=== PATIENT | female | born 1955 | race Caucasian/White ===

== ENCOUNTER 2021-12-29 02:19 | Inpatient (IN) ==
[2021-12-29 03:59] LABS: Basophils % 0.2 % (0.0-0.8); Eosinophils % 0.2 % (0.00-10.9); Hematocrit 26.6 VOL% (35.7-47.0); Hemoglobin 8.8 GM/DL (12.0-16.0); Immature Granulocytes % 0.6 %; Immature Granulocytes Absolute 0.07 #; Lymphocytes # 1.2 10*3/uL (1.4-4.0); Lymphocytes % 10.7 % (21.3-54.2); Mean Corpuscular HGB Conc 33.1 GM/DL (32-36); Mean Corpuscular Volume 92.7 FL (87-102); Mean Platelet Volume 12.4 FL (9.6-12.0); Monocytes % 7.1 % (1.7-12.7); Neutrophils % 81.2 % (38.7-73.9); Platelet Count 335 T/CUMM (130-400); Red Blood Count 2.87 MC/CUMM (3.8-5.5); Red Cell Distribution Width 13.2 % (9.3-17.3); White Blood Count 11.5 T/CUMM (4-12)
[2021-12-29 04:14] LABS: INR 1.3; PT Patient Result 14.6 SECS (10.5-12.0)
[2021-12-29 04:19] LABS: Albumin 2.8 G/DL (3.4-5.0); Bilirubin,Total 0.4 MG/DL (0.20-1.00); Calcium 8.8 MG/DL (8.5-10.1); Osmolality,Calculated 292.4 MOS/KG (273-304); Potassium 5.4 MMOL/L (3.5-5.1); Total Protein 6.5 G/DL (6.4-8.2)
[2021-12-29] MEDS ORDERED: hydrALAZINE 20 MG/1 ML VIAL IV PRN (08:19)
[2021-12-29] MEDS ORDERED: DEXTROSE 50% 25 GM/50 ML VIAL IV PRN (08:19)
[2021-12-29] MEDS ORDERED: DEXTROSE 10% 25 GM/250 ML BAG IV PRN (08:19)
[2021-12-29] MEDS ORDERED: ACETAMINOPHEN 325 MG TABLET PO PRN (08:19)
[2021-12-29] MEDS ORDERED: GLUCAGON 1 MG VIAL IM PRN ×2 (08:19)
[2021-12-29] MEDS ORDERED: ENOXAPARIN 40 MG/0.4 ML SYRINGE SUBCUT SCH (08:30)
[2021-12-29] MEDS ORDERED: SODIUM ZIRCONIUM CYCLOSILICATE 10 GM PACK PO SCH (09:00)
[2021-12-29] MEDS ORDERED: METOPROLOL SUCCINATE XL 25 MG TABLET PO SCH (09:00)
[2021-12-29 09:05] LABS: Bacteria,Urine Occasional /HPF (Few); Hyaline Casts,Urine 5 /LPF (0-3); Mucus,Urine Occasional /LPF (Occasional); Protein,Urine 100 mg/dL (Negative); RBC,Urine 1 /HPF (0-4); Urine Appearance Clear (Clear); Urine Color Yellow (Yellow); Urine Specific Gravity > 1.030 (1.001-1.035)
[2021-12-29 09:06] LABS: Bilirubin,Urine Small mg/dL (Negative); Blood, Urine Negative (Negative); Glucose,Urine (UA) Negative (Negative); Ketones,Urine Trace mg/dL (Negative); Nitrite,Urine Negative (Negative); Urine Urobilinogen 0.2 eU/dL (<2.0)
[2021-12-29] MEDS: SODIUM CHLORIDE 0.9% 1,000 ML IV SCH ×3 (09:23→20:50)
[2021-12-29] MEDS: PANTOPRAZOLE 40 MG TABLET PO SCH (09:24)
[2021-12-29] MEDS: CLOPIDOGREL 75 MG TABLET PO SCH (09:24)
[2021-12-29] MEDS: ASPIRIN EC 81 MG TABLET PO SCH (09:24)
[2021-12-29] MEDS: HEPARIN 5,000 UNIT/1 ML VIAL SUBCUT SCH ×2 (09:25→20:48)
[2021-12-29] MEDS: INSULIN GLARGINE 100 UNIT/ML SUBCUT SCH (09:28)
[2021-12-29 10:24] LABS: % Iron Saturation 17.3 % (18-50); Ferritin 932.6 ng/mL (8-252)
[2021-12-29 10:59] LABS: Hepatitis B Core IgM Quant 0.11 Index; Hepatitis B Surface Ag Quant < 0.10 Index; Hepatitis B Surface Ag Result Non-Reactive (NonReactive); Hepatitis C Virus Ab Quant 0.04 Index; Hepatitis C Virus Ab Result Non-Reactive (NonReactive)
[2021-12-29] MEDS: INSULIN LISPRO 100 UNIT/ML SUBCUT SCH ×3 (12:15→20:49)
[2021-12-29 14:42] LABS: Calcium 8.2 MG/DL (8.5-10.1); Osmolality,Calculated 298.2 MOS/KG (273-304); Potassium 4.9 MMOL/L (3.5-5.1)
[2021-12-29] MEDS: ONDANSETRON 4 MG/2 ML VIAL IV PRN (17:49)
[2021-12-29] MEDS: ATORVASTATIN 40 MG TABLET PO SCH (20:49)
[2021-12-29] MEDS: SODIUM ZIRCONIUM CYCLOSILICATE 10 GM PACK PO SCH (20:49)
[2021-12-30 00:50] LABS: Basophils % 0.2 % (0.0-0.8); Eosinophils % 0.1 % (0.00-10.9); Hematocrit 26.7 VOL% (35.7-47.0); Hemoglobin 8.8 GM/DL (12.0-16.0); Immature Granulocytes % 0.4 %; Immature Granulocytes Absolute 0.04 #; Lymphocytes # 1.3 10*3/uL (1.4-4.0); Lymphocytes % 13.3 % (21.3-54.2); Mean Corpuscular Volume 91.8 FL (87-102); Mean Platelet Volume 11.7 FL (9.6-12.0); Platelet Count 319 T/CUMM (130-400); Red Blood Count 2.91 MC/CUMM (3.8-5.5); Red Cell Distribution Width 13.3 % (9.3-17.3); White Blood Count 9.7 T/CUMM (4-12)
[2021-12-30 01:20] LABS: Alanine Aminotransferase 195 U/L (13-56); Albumin 2.3 G/DL (3.4-5.0); Alkaline Phosphatase 100 U/L (45-117); Aspartate Amino Transferase 243 U/L (0-37); Bilirubin,Total < 0.39 MG/DL (0.20-1.00); Blood Urea Nitrogen 110 MG/DL (7-18); Calcium 8.1 MG/DL (8.5-10.1); Carbon Dioxide 19 MMOL/L (21-32); Estimated Glom Filtration Rate 5 ML/MIN; Glucose 89 MG/DL (74-106); HDL Cholesterol 40 MG/DL (40-60); Osmolality,Calculated 290.1 MOS/KG (273-304); Potassium 5.1 MMOL/L (3.5-5.1); Risk Ratio 1.98; Sodium 128 MMOL/L (136-145); Total Protein 6.1 G/DL (6.4-8.2); Triglycerides 58 MG/DL (2-150); VLDL Cholesterol 11.6 MG/DL
[2021-12-30] MEDS: SODIUM CHLORIDE 0.9% 1,000 ML IV SCH ×3 (04:23→19:03)
[2021-12-30] MEDS: ONDANSETRON 4 MG/2 ML VIAL IV PRN (04:48)
[2021-12-30] MEDS ORDERED: HYDROCORTISONE 100 MG VIAL IV ONE (05:10)
[2021-12-30] MEDS ORDERED: DOPamine 800 MG/250 ML PREMIX IV PRN (05:13)
[2021-12-30 06:41] LABS: Basophils % 0.2 % (0.0-0.8); Eosinophils % 0.1 % (0.00-10.9); Hematocrit 28.1 VOL% (35.7-47.0); Hemoglobin 9.3 GM/DL (12.0-16.0); Immature Granulocytes % 0.5 %; Immature Granulocytes Absolute 0.06 #; Lymphocytes # 1.1 10*3/uL (1.4-4.0); Mean Corpuscular HGB Conc 33.1 GM/DL (32-36); Mean Platelet Volume 11.9 FL (9.6-12.0); Monocytes % 4.9 % (1.7-12.7); Neutrophils % 84.3 % (38.7-73.9); Platelet Count 320 T/CUMM (130-400); Red Blood Count 3.02 MC/CUMM (3.8-5.5); Red Cell Distribution Width 13.5 % (9.3-17.3); White Blood Count 11.4 T/CUMM (4-12)
[2021-12-30 06:53] LABS: Osmolality,Calculated 296.9 MOS/KG (273-304); Potassium 5.3 MMOL/L (3.5-5.1)
[2021-12-30] MEDS: INSULIN GLARGINE 100 UNIT/ML SUBCUT SCH (09:03)
[2021-12-30] MEDS: CLOPIDOGREL 75 MG TABLET PO SCH (09:04)
[2021-12-30] MEDS: PANTOPRAZOLE 40 MG TABLET PO SCH (09:04)
[2021-12-30] MEDS: HEPARIN 5,000 UNIT/1 ML VIAL SUBCUT SCH ×2 (09:04→21:15)
[2021-12-30] MEDS: INSULIN LISPRO 100 UNIT/ML SUBCUT SCH ×4 (09:06→21:44)
[2021-12-30] MEDS: ASPIRIN EC 81 MG TABLET PO SCH (09:07)
[2021-12-30] MEDS ORDERED: MAGNESIUM HYDROXIDE SUSP 30 ML UDCUP PO ONE (12:13)
[2021-12-30 14:59] LABS: Osmolality,Calculated 298.9 MOS/KG (273-304); Potassium 5.2 MMOL/L (3.5-5.1)
[2021-12-30] MEDS: POLYETHYLENE GLYCOL POWDER 17 GM PACK PO SCH (19:02)
[2021-12-30] MEDS: SODIUM ZIRCONIUM CYCLOSILICATE 10 GM PACK PO SCH (21:14)
[2021-12-30] MEDS: DOCUSATE SODIUM 100 MG CAPSULE PO SCH (21:14)
[2021-12-30] MEDS: ATORVASTATIN 40 MG TABLET PO SCH (21:14)
[2021-12-31] MEDS: SODIUM CHLORIDE 0.9% 1,000 ML IV SCH ×5 (01:59→23:52)
[2021-12-31 04:00] LABS: Basophils % 0.1 % (0.0-0.8); Eosinophils % 0.1 % (0.00-10.9); Hemoglobin 8.5 GM/DL (12.0-16.0); Immature Granulocytes % 0.5 %; Immature Granulocytes Absolute 0.05 #; Lymphocytes # 1.2 10*3/uL (1.4-4.0); Lymphocytes % 12.5 % (21.3-54.2); Mean Corpuscular HGB Conc 32.7 GM/DL (32-36); Mean Corpuscular Volume 93.9 FL (87-102); Mean Platelet Volume 12.1 FL (9.6-12.0); Monocytes % 6.8 % (1.7-12.7); Platelet Count 324 T/CUMM (130-400); Red Blood Count 2.77 MC/CUMM (3.8-5.5); Red Cell Distribution Width 13.5 % (9.3-17.3); White Blood Count 9.8 T/CUMM (4-12)
[2021-12-31 04:36] LABS: Alanine Aminotransferase 261 U/L (13-56); Albumin 2.3 G/DL (3.4-5.0); Alkaline Phosphatase 115 U/L (45-117); Aspartate Amino Transferase 279 U/L (0-37); Bilirubin,Total < 0.39 MG/DL (0.20-1.00); Blood Urea Nitrogen 116 MG/DL (7-18); Carbon Dioxide 17 MMOL/L (21-32); Estimated Glom Filtration Rate 5 ML/MIN; Glucose 154 MG/DL (74-106); Osmolality,Calculated 301.7 MOS/KG (273-304); Potassium 5.3 MMOL/L (3.5-5.1); Sodium 131 MMOL/L (136-145)
[2021-12-31] MEDS: PANTOPRAZOLE 40 MG TABLET PO SCH (08:07)
[2021-12-31] MEDS: DOCUSATE SODIUM 100 MG CAPSULE PO SCH ×2 (08:07→21:39)
[2021-12-31] MEDS: ASPIRIN EC 81 MG TABLET PO SCH (08:07)
[2021-12-31] MEDS: CLOPIDOGREL 75 MG TABLET PO SCH (08:07)
[2021-12-31] MEDS: POLYETHYLENE GLYCOL POWDER 17 GM PACK PO SCH (08:07)
[2021-12-31] MEDS: INSULIN LISPRO 100 UNIT/ML SUBCUT SCH ×4 (08:24→21:39)
[2021-12-31] MEDS: HEPARIN 5,000 UNIT/1 ML VIAL SUBCUT SCH ×2 (08:24→21:40)
[2021-12-31] MEDS: INSULIN GLARGINE 100 UNIT/ML SUBCUT SCH (08:25)
[2021-12-31] MEDS ORDERED: LACTULOSE 20 GM/30 ML UDCUP PO PRN (11:55)
[2021-12-31] MEDS: SODIUM ZIRCONIUM CYCLOSILICATE 10 GM PACK PO SCH (21:40)
[2022-01-01] MEDS: ONDANSETRON 4 MG/2 ML VIAL IV PRN (00:51)
[2022-01-01 01:34] LABS: Calcium 8.1 MG/DL (8.5-10.1); Osmolality,Calculated 294.7 MOS/KG (273-304); Potassium 4.9 MMOL/L (3.5-5.1)
[2022-01-01 01:47] LABS: CKMB % 6.1 %
[2022-01-01 01:49] LABS: High Sensitive Troponin I* 27264.9 ng/L (0-54)
[2022-01-01 04:39] LABS: Basophils % 0.1 % (0.0-0.8); Eosinophils % 0.1 % (0.00-10.9); Hematocrit 27.8 VOL% (35.7-47.0); Hemoglobin 9.1 GM/DL (12.0-16.0); Immature Granulocytes % 0.6 %; Lymphocytes # 0.7 10*3/uL (1.4-4.0); Mean Corpuscular HGB Conc 32.7 GM/DL (32-36); Mean Corpuscular Volume 94.6 FL (87-102); Mean Platelet Volume 11.5 FL (9.6-12.0); Monocytes % 4.8 % (1.7-12.7); NRBC # 0.02 10*3/uL; Neutrophils % 90.4 % (38.7-73.9); Platelet Count 328 T/CUMM (130-400); Red Blood Count 2.94 MC/CUMM (3.8-5.5); Red Cell Distribution Width 14.1 % (9.3-17.3); White Blood Count 17.4 T/CUMM (4-12)
[2022-01-01 04:45] LABS: Calcium 8.1 MG/DL (8.5-10.1); Osmolality,Calculated 295.8 MOS/KG (273-304); Potassium 4.8 MMOL/L (3.5-5.1)
[2022-01-01 05:03] LABS: Band Neutrophils 1 % (0-10); Lymphocytes 3 % (20-55); Microcytosis Slight; Segmented Neutrophils 91 % (50-85); Total Cells Counted 100
[2022-01-01 05:04] LABS: Acanthocytes Few
[2022-01-01] MEDS: INSULIN LISPRO 100 UNIT/ML SUBCUT SCH ×4 (07:25→20:02)
[2022-01-01] MEDS: POLYETHYLENE GLYCOL POWDER 17 GM PACK PO SCH (08:33)
[2022-01-01] MEDS: ASPIRIN EC 81 MG TABLET PO SCH (08:33)
[2022-01-01] MEDS: CLOPIDOGREL 75 MG TABLET PO SCH (08:33)
[2022-01-01] MEDS: DOCUSATE SODIUM 100 MG CAPSULE PO SCH ×2 (08:33→20:52)
[2022-01-01] MEDS: PANTOPRAZOLE 40 MG TABLET PO SCH (08:33)
[2022-01-01] MEDS: INSULIN GLARGINE 100 UNIT/ML SUBCUT SCH (08:33)
[2022-01-01] MEDS: HEPARIN 5,000 UNIT/1 ML VIAL SUBCUT SCH ×2 (08:33→20:53)
[2022-01-01] MEDS: SODIUM CHLORIDE 0.9% 1,000 ML IV SCH (15:49)
[2022-01-01] MEDS: SODIUM ZIRCONIUM CYCLOSILICATE 10 GM PACK PO SCH (20:58)
[2022-01-02 03:33] LABS: Basophils % 0.1 % (0.0-0.8); Eosinophils # 0.2 10*3/uL (0.0-0.87); Hematocrit 26.3 VOL% (35.7-47.0); Hemoglobin 8.9 GM/DL (12.0-16.0); Immature Granulocytes % 0.6 %; Immature Granulocytes Absolute 0.09 #; Lymphocytes # 0.4 10*3/uL (1.4-4.0); Lymphocytes % 2.9 % (21.3-54.2); Mean Corpuscular HGB Conc 33.8 GM/DL (32-36); Mean Corpuscular Volume 92.6 FL (87-102); Mean Platelet Volume 11.1 FL (9.6-12.0); Monocytes % 4.5 % (1.7-12.7); NRBC # 0.02 10*3/uL; Neutrophils % 90.9 % (38.7-73.9); Platelet Count 304 T/CUMM (130-400); Red Blood Count 2.84 MC/CUMM (3.8-5.5); White Blood Count 14.7 T/CUMM (4-12)
[2022-01-02 03:55] LABS: Eosinophils 2 % (0-10); Lymphocytes 6 % (20-55); Segmented Neutrophils 91 % (50-85); Total Cells Counted 100
[2022-01-02 03:56] LABS: Burr Cells 1+; Platelet Estimate Adequate
[2022-01-02 04:06] LABS: Calcium 7.9 MG/DL (8.5-10.1); Osmolality,Calculated 291.4 MOS/KG (273-304); Potassium 4.2 MMOL/L (3.5-5.1)
[2022-01-02] MEDS: SODIUM CHLORIDE 0.9% 1,000 ML IV SCH ×2 (06:01→10:54)
[2022-01-02] MEDS: INSULIN LISPRO 100 UNIT/ML SUBCUT SCH ×4 (08:34→21:38)
[2022-01-02] MEDS: MORPHINE 2 MG/1 ML SYRINGE IV PRN ×2 (08:42→18:28)
[2022-01-02] MEDS: INSULIN GLARGINE 100 UNIT/ML SUBCUT SCH (09:36)
[2022-01-02] MEDS: DOCUSATE SODIUM 100 MG CAPSULE PO SCH ×2 (09:36→21:37)
[2022-01-02] MEDS: PANTOPRAZOLE 40 MG TABLET PO SCH (09:36)
[2022-01-02] MEDS: ASPIRIN EC 81 MG TABLET PO SCH (09:36)
[2022-01-02] MEDS: CLOPIDOGREL 75 MG TABLET PO SCH (09:36)
[2022-01-02] MEDS: POLYETHYLENE GLYCOL POWDER 17 GM PACK PO SCH (09:38)
[2022-01-02] MEDS: HEPARIN 5,000 UNIT/1 ML VIAL SUBCUT SCH ×2 (09:38→21:37)
[2022-01-02 16:18] VITALS: BP 125/93
[2022-01-02] MEDS: SODIUM ZIRCONIUM CYCLOSILICATE 10 GM PACK PO SCH (21:38)
[2022-01-03 04:45] LABS: Basophils % 0.1 % (0.0-0.8); Eosinophils # 0.4 10*3/uL (0.0-0.87); Eosinophils % 3.2 % (0.00-10.9); Hematocrit 27.4 VOL% (35.7-47.0); Immature Granulocytes % 1.7 %; Immature Granulocytes Absolute 0.23 #; Lymphocytes # 0.7 10*3/uL (1.4-4.0); Lymphocytes % 5.2 % (21.3-54.2); Mean Corpuscular HGB Conc 32.8 GM/DL (32-36); Mean Corpuscular Volume 93.2 FL (87-102); Mean Platelet Volume 10.8 FL (9.6-12.0); Monocytes % 6.4 % (1.7-12.7); NRBC # 0.04 10*3/uL; Neutrophils % 83.4 % (38.7-73.9); Platelet Count 298 T/CUMM (130-400); Red Blood Count 2.94 MC/CUMM (3.8-5.5); Red Cell Distribution Width 14.2 % (9.3-17.3); White Blood Count 13.8 T/CUMM (4-12)
[2022-01-03 05:02] LABS: Calcium 7.9 MG/DL (8.5-10.1); Osmolality,Calculated 286.5 MOS/KG (273-304)
[2022-01-03 05:10] LABS: Albumin 1.7 G/DL (3.4-5.0); Bilirubin,Direct 0.21 MG/DL (0.0-0.20); Bilirubin,Total 1.2 MG/DL (0.20-1.00); Total Protein 5.7 G/DL (6.4-8.2)
[2022-01-03] MEDS: INSULIN LISPRO 100 UNIT/ML SUBCUT SCH ×4 (08:31→20:25)
[2022-01-03] MEDS: ASPIRIN EC 81 MG TABLET PO SCH (08:42)
[2022-01-03] MEDS: DOCUSATE SODIUM 100 MG CAPSULE PO SCH ×2 (08:42→22:15)
[2022-01-03] MEDS: PANTOPRAZOLE 40 MG TABLET PO SCH (08:42)
[2022-01-03] MEDS: INSULIN GLARGINE 100 UNIT/ML SUBCUT SCH (08:42)
[2022-01-03] MEDS: CLOPIDOGREL 75 MG TABLET PO SCH (08:42)
[2022-01-03] MEDS: HEPARIN 5,000 UNIT/1 ML VIAL SUBCUT SCH ×2 (08:43→20:30)
[2022-01-03] MEDS: POLYETHYLENE GLYCOL POWDER 17 GM PACK PO SCH (08:43)
[2022-01-03] MEDS: SODIUM CHLORIDE 0.9% 1,000 ML IV SCH ×2 (11:11→20:17)
[2022-01-03] MEDS ORDERED: HEPARIN 10,000 UNIT/10 ML VIAL IV PRN (13:07)
[2022-01-03] MEDS: SODIUM ZIRCONIUM CYCLOSILICATE 10 GM PACK PO SCH (20:30)
[2022-01-04] MEDS: SODIUM CHLORIDE 0.9% 1,000 ML IV SCH ×3 (04:31→23:53)
[2022-01-04 04:34] LABS: Basophils % 0.1 % (0.0-0.8); Eosinophils # 0.2 10*3/uL (0.0-0.87); Eosinophils % 1.2 % (0.00-10.9); Hematocrit 25.6 VOL% (35.7-47.0); Hemoglobin 8.3 GM/DL (12.0-16.0); Immature Granulocytes % 1.1 %; Immature Granulocytes Absolute 0.18 #; Lymphocytes # 0.8 10*3/uL (1.4-4.0); Lymphocytes % 4.4 % (21.3-54.2); Mean Corpuscular HGB Conc 32.4 GM/DL (32-36); Mean Corpuscular Volume 93.1 FL (87-102); Mean Platelet Volume 11.5 FL (9.6-12.0); Monocytes % 9.4 % (1.7-12.7); NRBC # 0.07 10*3/uL; Neutrophils % 83.8 % (38.7-73.9); Platelet Count 263 T/CUMM (130-400); Red Blood Count 2.75 MC/CUMM (3.8-5.5); Red Cell Distribution Width 14.5 % (9.3-17.3)
[2022-01-04 04:53] LABS: Band Neutrophils 1 % (0-10); Calcium 7.9 MG/DL (8.5-10.1); Eosinophils 3 % (0-10); Lymphocytes 3 % (20-55); Nucleated Red Blood Cells 2 (0-5); Osmolality,Calculated 276.4 MOS/KG (273-304); Platelet Estimate Normal; Potassium 3.7 MMOL/L (3.5-5.1); Segmented Neutrophils 88 % (50-85); Total Cells Counted 100
[2022-01-04 04:54] LABS: Hypochromia Slight
[2022-01-04] MEDS: INSULIN GLARGINE 100 UNIT/ML SUBCUT SCH (09:45)
[2022-01-04] MEDS: ASPIRIN EC 81 MG TABLET PO SCH (09:52)
[2022-01-04] MEDS: DOCUSATE SODIUM 100 MG CAPSULE PO SCH ×2 (09:53→21:01)
[2022-01-04] MEDS: POLYETHYLENE GLYCOL POWDER 17 GM PACK PO SCH (09:53)
[2022-01-04] MEDS: PANTOPRAZOLE 40 MG TABLET PO SCH (09:53)
[2022-01-04] MEDS: CLOPIDOGREL 75 MG TABLET PO SCH (09:53)
[2022-01-04] MEDS: HEPARIN 5,000 UNIT/1 ML VIAL SUBCUT SCH ×2 (09:54→21:01)
[2022-01-04] MEDS: INSULIN LISPRO 100 UNIT/ML SUBCUT SCH ×4 (13:48→21:01)
[2022-01-04] MEDS: SODIUM ZIRCONIUM CYCLOSILICATE 10 GM PACK PO SCH (21:01)
[2022-01-05] MEDS: ONDANSETRON 4 MG/2 ML VIAL IV PRN (02:45)
[2022-01-05 03:35] LABS: Basophils % 0.1 % (0.0-0.8); Eosinophils # 0.1 10*3/uL (0.0-0.87); Eosinophils % 0.3 % (0.00-10.9); Hematocrit 24.5 VOL% (35.7-47.0); Hemoglobin 8.1 GM/DL (12.0-16.0); Immature Granulocytes % 1.3 %; Immature Granulocytes Absolute 0.31 #; Lymphocytes # 0.9 10*3/uL (1.4-4.0); Lymphocytes % 3.9 % (21.3-54.2); Mean Corpuscular HGB Conc 33.1 GM/DL (32-36); Mean Corpuscular Volume 93.5 FL (87-102); Mean Platelet Volume 11.3 FL (9.6-12.0); Monocytes % 8.7 % (1.7-12.7); Neutrophils % 85.7 % (38.7-73.9); Platelet Count 268 T/CUMM (130-400); Red Blood Count 2.62 MC/CUMM (3.8-5.5); Red Cell Distribution Width 14.6 % (9.3-17.3); White Blood Count 24.3 T/CUMM (4-12)
[2022-01-05 03:37] LABS: Calcium 8.1 MG/DL (8.5-10.1); Osmolality,Calculated 275.5 MOS/KG (273-304); Potassium 3.5 MMOL/L (3.5-5.1)
[2022-01-05 04:16] LABS: Burr Cells Few; Helmet Cells Slight; Lymphocytes 6 % (20-55); Ovalocytes Few; Platelet Estimate Normal; Polychromasia Slight; Segmented Neutrophils 85 % (50-85); Total Cells Counted 100
[2022-01-05] MEDS ORDERED: GLUCAGON 1 MG VIAL IM PRN (08:00)
[2022-01-05] MEDS ORDERED: DEXTROSE 10% 250 ML BAG IV PRN (08:05)
[2022-01-05] MEDS: INSULIN LISPRO 100 UNIT/ML SUBCUT SCH ×3 (08:05→17:20)
[2022-01-05] MEDS: INSULIN GLARGINE 100 UNIT/ML SUBCUT SCH (08:56)
[2022-01-05] MEDS: PANTOPRAZOLE 40 MG TABLET PO SCH (09:10)
[2022-01-05] MEDS: POLYETHYLENE GLYCOL POWDER 17 GM PACK PO SCH (09:10)
[2022-01-05] MEDS: HEPARIN 5,000 UNIT/1 ML VIAL SUBCUT SCH (09:10)
[2022-01-05] MEDS: CLOPIDOGREL 75 MG TABLET PO SCH (09:10)
[2022-01-05] MEDS: DOCUSATE SODIUM 100 MG CAPSULE PO SCH (09:10)
[2022-01-05] MEDS: ASPIRIN EC 81 MG TABLET PO SCH (09:10)
[2022-01-05 09:37] LABS: Bilirubin,Urine Moderate mg/dL (Negative); Blood, Urine Large mg/dL (Negative); Glucose,Urine (UA) 100 mg/dL (Negative); Hyaline Casts,Urine 766 /LPF (0-3); Ketones,Urine Trace mg/dL (Negative); Mucus,Urine Few /LPF (Occasional); Nitrite,Urine Negative (Negative); Protein,Urine >=300 mg/dL (Negative); RBC,Urine 9164 /HPF (0-4); Urine Appearance Turbid (Clear); Urine Color Brown (Yellow); Urine Specific Gravity 1.025 (1.001-1.035)
[2022-01-05] MEDS ORDERED: cefTRIAXone 1,000 MG in SODIUM CHLORIDE 0.9% 100 ML IV SCH (13:00)
[2022-01-05] MEDS: MORPHINE 2 MG/1 ML SYRINGE IV PRN (13:20)
[2022-01-05] MEDS ORDERED: POTASSIUM CHLORIDE 20 MEQ TABLET PO ONE (13:25)
[2022-01-05] MEDS ORDERED: MAGNESIUM SULF RIDER 2 GM/50 ML PREMIX IV ONE (13:25)
[2022-01-05] MEDS ORDERED: AMIODARONE 450 MG/9 ML VIAL IV ONE (13:26)
[2022-01-05] MEDS ORDERED: ASCORBIC ACID 500 MG TABLET PO SCH (13:26)
[2022-01-05] MEDS ORDERED: AMIODARONE 150 MG/3 ML VIAL ONE (13:26)
[2022-01-05] MEDS ORDERED: SODIUM CHLORIDE 0.9% 500 ML IV ONE (13:30)
[2022-01-05] MEDS ORDERED: AMIODARONE INJ 450 MG in DEXTROSE 5% 241 ML IV SCH (13:30)
[2022-01-05] MEDS: ALBUTEROL/IPRATROPIUM 3 ML NEB RESP TX SCH ×2 (13:35→19:56)
[2022-01-05] MEDS ORDERED: POTASSIUM CHLORIDE RIDER 0 MEQ/0 ML PREMIX IV ONE (13:38)
[2022-01-05] MEDS ORDERED: DIGOXIN 0.5 MG/2 ML AMP IV ONE (14:03)
[2022-01-05] MEDS ORDERED: ETOMIDATE 20 MG/10 ML VIAL IV ONE ×3 (14:15→19:30)
[2022-01-05] MEDS ORDERED: EPINEPHrine 1 MG/10 ML SYRINGE IV ONE (14:16)
[2022-01-05] MEDS ORDERED: SODIUM BICARBONATE 50 MEQ/50 ML SYRINGE IV ONE (14:21)
[2022-01-05] MEDS ORDERED: MAGNESIUM SULFATE 1 GM/2 ML VIAL IV ONE (14:22)
[2022-01-05] MEDS ORDERED: MAGNESIUM SULF RIDER IV ONE (14:22)
[2022-01-05] MEDS ORDERED: CALCIUM CHLORIDE 1,000 MG/10 ML SYRINGE IV ONE (14:27)
[2022-01-05 14:41] LABS: Alanine Aminotransferase 101 U/L (13-56); Albumin 1.6 G/DL (3.4-5.0); Alkaline Phosphatase 177 U/L (45-117); Aspartate Amino Transferase 88 U/L (0-37); Blood Urea Nitrogen 52 MG/DL (7-18); Carbon Dioxide 20 MMOL/L (21-32); Estimated Glom Filtration Rate 12 ML/MIN; Glucose 176 MG/DL (74-106); Osmolality,Calculated 277.8 MOS/KG (273-304); Sodium 130 MMOL/L (136-145); Total Protein 5.9 G/DL (6.4-8.2)
== END 2022-01-05 14:32 | disposition expired | DRG 682 ==
LOC: N.ED 02:19 → N.EDINP 02:19 → SUATTDRO 08:19 → N.EDINP 09:29 → N.TELEN 10:07 → N.CC 12-30 05:09 → SUATTDRO 12-30 11:47
PROVIDERS: ADMIT Phlebology; ATTEND Internal Medicine